=== PATIENT | female | born 1935 | race Caucasian/White ===

== ENCOUNTER 2017-03-17 05:44 | Emergency (ER) | payer OTHER ==
[~2017-03-17] VITALS: Ht 162.6 cm; Wt 77.1 kg
--- NOTE | ~2017-03-17 | CR72 ---
[facility] A Service of [facility] & [facility] RADIOLOGY TEXT RESULTS PATIENT: SINAI NG LOCATION: SED : 31 UNIT #: [id number] AGE: [address]: Luan Stephens DO SEX: F ORDER DR: [id number] [place] [address] [id number] E MR#: [id number] Acc #: [id number] NAME: SINAI NG : 1935 SEX: F STUDY DATE/TIME: 03/17/2017 6:34 UNIT: SED ROOM: STUDY DESCRIPTION: CR Chest Single View Portable Attending Physician: Luan Stephens Ordering Physician: Luan Stephens Primary Care Physician: Lata Mcneil M.D. MEDICAL IMAGING REPORT This report is preliminary unless electronic signature is present. EXAM Portable chest INDICATION Chest pain and shortness of air this morning. PROCEDURE Frontal view chest. COMPARISON 03/05/2010. FINDINGS Heart size is stable. There is no dense consolidation, visible pleural fluid or pneumothorax. IMPRESSION No active process. Dictated by... Murphy Eason M.D. THIS IS AN ELECTRONICALLY VERIFIED REPORT Murphy Eason M.D. at 03/18/2017 8:16 AM BILLY/jeff TD: 03/17/2017 07:50 JOB #: [id number] MEDICAL IMAGING REPORT Page 1 of 1
--- NOTE | ~2017-03-17 | EKG ---
PATIENT: SINAI NG UNIT #: [id number] Ventricular Rate: 79 BPM Atrial Rate: 79 BPM P-R Interval: 190 ms QRS Duration: 82 ms Q-T Interval: 392 ms QTC Calculation(Bezet): 449 ms P [place]: 84 degrees Calculated R [place]: -66 degrees Calculated T [place]: 90 degrees Diagnosis Line: Normal sinus rhythm Diagnosis Line: Pulmonary disease pattern Diagnosis Line: Left anterior fascicular block Diagnosis Line: Nonspecific T wave abnormality Diagnosis Line: Abnormal ECG Diagnosis Line: When compared with ECG of 25-APR-2010 08:19, Diagnosis Line: No significant change was found Diagnosis Line: Confirmed by BRITTANY DAHL MD ([id number]) on Diagnosis Line: 03/18/2017 4:04:51 PM INTERPRETING MD: NABILA LEIVA
[~2017-03-17 05:44] MED LIST: BAYER ASPIRIN325 M1 PO; BENICAR PO; GLUCOPHAGE XR500 MG PO; IBUPROFEN PO; INDOCIN SR75 MG PO; KEFLEX500 MG PO; LORTAB 5/500 TA1 TA1 PO; MEVACOR PO; PEPCID AC20 MG PO; PLAVIX PO; PREVACID15 MG PO; PRINIVIL20 M1 PO; ZETIA PO
[2017-03-17] MEDS ORDERED: ECOTRIN325 MG (05:58)
[2017-03-17] MEDS ORDERED: LISINOPRIL10 MG (05:58)
[2017-03-17 06:28] LABS: BASOPHIL# 0.1 X10e3 (0-0.3); EOSINOPHIL# 0.2 X10e3 (0-0.7); HEMATOCRIT 39.6 % (35.0-45.0); HEMOGLOBIN 12.7 gm/dL (12.0-16.0); LYMPHOCYTE# 1.1 X10e3 (1.0-3.5); LYMPHOCYTE% 12.4 % (17.0-45.0); MEAN CORPUSCULAR HEMOGLOBIN 25.7 PG (28-34); MEAN CORPUSCULAR HGB CONC 32.2 g/dL (30-36); MEAN PLATELET VOLUME 8.1 FL (6.5-11.5); MONOCYTE# 0.4 X10e3 (0-1.0); MONOCYTE% 4.8 % (3.0-12.0); NEUTROPHIL# 7.1 X10e3 (1.5-7.1); NEUTROPHIL% 79.8 % (40-75); PLATELET COUNT 268 X10e3 (140-420); RED BLOOD COUNT 4.95 X10e (3.90-5.30); WHITE BLOOD COUNT 8.8 X10e3 (4.0-10.5)
[2017-03-17 06:29] LABS: DIFF IND NO
[2017-03-17 06:38] LABS: POC - CKMB 1.6 ng/mL (0.0-7.9); POC - TROPONIN <0.05 ng/mL (<=0.05)
[2017-03-17 06:40] LABS: PROTHROMBIN TIME (PATIENT) 11.3 SECONDS (9.5-12.4)
[2017-03-17 06:49] LABS: ALBUMIN SERUM 3.7 g/dL (3.5-5.0); BILIRUBIN, DIRECT 0.2 mg/dL (0.0-0.2); BILIRUBIN,INDIRECT 1.2 mg/dL (0.0-0.9); BILIRUBIN,TOTAL 1.4 mg/dL (0.2-2.0); BUN/CREATININE RATIO 11.25; CALCIUM SERUM 8.7 mg/dL (8.4-10.2); CREATININE SERUM 0.8 mg/dL (0.6-1.4); GLOM FILT RATE Estimated 68.2 mL/min (>60); POTASSIUM 3.9 mmol/L (3.5-5.1); PROTEIN TOTAL SERUM 6.6 g/dL (6.0-8.3)
[2017-03-17 07:56] LABS: POC - CKMB <1.0 ng/mL (0.0-7.9)
[2017-03-17 07:57] LABS: POC - TROPONIN <0.05 ng/mL (<=0.05)
== END 2017-03-17 08:37 | disposition home or self-care (01) ==
LOC: SED 05:44
PROVIDERS: Emergency Medicine
DX: R07.9 Chest pain, unspecified (principal); R06.00 Dyspnea, unspecified; E11.9 Type 2 diabetes mellitus without complications; I10 Essential (primary) hypertension; I25.10 Atherosclerotic heart disease of native coronary artery without angina pectoris; Z79.899 Other long term (current) drug therapy; Z79.82 Long term (current) use of aspirin
CPT/HCPCS: 36415; 71010; 80048; 80076; 82553; 83880; 84484; 85025; 85610; 85730; 93005; 99285

== ENCOUNTER → 2017-03-19 | Outpatient (CLI) | payer OTHER ==
[~2017-03-19] MED LIST changes: +ECOTRIN325 MG; +LISINOPRIL10 MG
--- NOTE | ~2017-03-19 | TH ---
Unit #: [id number] #: [id number] Patient: SINAI NG [id number] [address] [address] [id number] O MR#: [id number] NAME: SINAI NG : 1935 SEX: F STUDY DATE/TIME: 03/19/2017 UNIT: CN ROOM: STUDY DESCRIPTION: Attending Physician: Soheila Persaud M.D. Referring Physician: Soheila Persaud M.D. Primary Care Physician: Lata Mcneil M.D. CARDIOLOGY REPORT EXAM Lexiscan Cardiolite stress test, nuclear portion. PROCEDURE Using technetium 99m labeled Cardiolite, rest and stress SPECT images were obtained. Multiple SPECT images were obtained in various views including horizontal and vertical long axis and short axis views of the left ventricle. Images were obtained by gated SPECT method. Patient was administered 11.93 mCi of Cardiolite at rest. Patient was administered 34.9 mCi of Cardiolite after Lexiscan infusion was completed. On the stress images, there is a small area of mild decreased isotope activity in the inferolateral wall. The rest images also show a small area of mild decreased isotope activity inferolaterally. Comparing rest and stress images, there is no obvious stress-induced ischemia noted. 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 The left ventricular ejection fraction is calculated to be 88%. There is no focal wall motion abnormality seen. The left ventricular size is small. CONCLUSION 1. 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 2. No obvious stress-induced ischemia noted. 3. The left ventricular ejection fraction is calculated to be 88%. 4. There is no focal wall motion abnormality seen. 5. The left ventricular size is small. 6. Technically limited study. Clinical correlation is requested. 1. Dictated by... Oralia Abrams TD: 03/19/2017 14:03 JOB #: [id number] Unit #: [id number] #: [id number] Patient: SINAI NG CARDIOLOGY REPORT Page 1 of 1 X Soheila Persaud MD <ELECTRONICALLY SIGNED> 05/02/17 [facility] CARDIOLOGY REPORT
--- NOTE | ~2017-03-19 | ST ---
Unit #: [id number] #: [id number] Patient: SINAI NG [id number] [address] [address] [id number] O MR#: [id number] NAME: SINAI NG : 1935 SEX: F STUDY DATE/TIME: 03/19/2017 UNIT: [facility] ROOM: STUDY DESCRIPTION: Attending Physician: Soheila Persaud M.D. Referring Physician: Soheila Persaud M.D. Primary Care Physician: Lata Mcneil M.D. CARDIOLOGY REPORT EXAM EKG portion of Lexiscan stress test. REASON FOR EXAM History of chest pain. FINDINGS Baseline EKG is normal sinus rhythm with a ventricular rate of 73 and nonspecific T-wave changes with an incomplete bundle branch block. PROCEDURE A total of 0.4 mg of Lexiscan was injected per protocol, followed by Cardiolite. Patient did not experience any symptoms. There were no significant ischemic ST-T wave changes. The test was stopped due to protocol completion. IMPRESSION This is a negative test. The patient experienced no symptoms. There were no arrhythmias. Please correlate with Cardiolite imaging. Dictated by... Nasreen Gómez APRN for Oralia Abrams TD: 03/19/2017 09:29 JOB #: [id number] CARDIOLOGY REPORT Page 1 of 1 X CARDIOLOGY REPORT
== END | disposition home or self-care (01) ==
LOC: CNUC 06:55
DX: R07.9 Chest pain, unspecified (principal); I34.0 Nonrheumatic mitral (valve) insufficiency
CPT/HCPCS: 78452; 93017; A9500; J2785